=== PATIENT | female | born 1990 | race Caucasian/White ===

== ENCOUNTER 2016-05-09 10:14 | Emergency (ER) | payer MEDICAID ==
[2016-05-09] MEDS ORDERED: METOPROLOL TART 25 MG TAB ONE (13:44)
== END 2016-05-09 14:15 | disposition home or self-care (01) ==
LOC: ER 10:14
DX: R00.2 Palpitations (principal); R00.0 Tachycardia, unspecified; I48.91 Unspecified atrial fibrillation
CPT/HCPCS: 36415; 80048; 80307; 81001; 81025; 84439; 84443; 85025; 85379; 87088; 93005